=== PATIENT | male | born 1965 | race Caucasian/White ===

== ENCOUNTER → 2018-10-20 | Outpatient (CLI) | payer OTHER ==
[~2018-10-20] MED LIST: ASPIR 8181 MG PO; ATORVASTATIN CA10 MG PO; BUPROPION XL150 MG PO; ESCITALOPRAM OX10 MG PO; INDOMETHACIN50 MG PO; IOPAMIDOL 370 MG/ML 200 ML INFUS..BTL INJ ONE; LAMISIL; MECLIZINE HCL25 MG PO; OMEGA 3 1,0001 EACH PO; OMEPRAZOLE20 MG PO; PREDNISONE20 MG PO; RANEXA500 MG; SODIUM CHLORIDE 0.9% 100 ML 100 ML ONE; TESTOSTERO100 MG/1 M SC
--- NOTE | 2018-10-20 14:41 | Diagnostic Imaging Report ---
EXAMINATION: CT scan angiography of the chest with contrast. TECHNIQUE: Spiral CT angiographic images of the chest were performed from the lung apices to the level of the adrenal glands after the intravenous administration of 100 cc Isovue-370. Coronal and sagittal reformatted images were obtained. COMPARISON: None. CLINICAL HISTORY:Chest pain, aortic aneurysm DISCUSSION: Vasculature: There is no acute aortic pathology. There is no intimal flap, mediastinal hematoma, or pseudoaneurysm. Advertising Designer measurements of the thoracic aorta are as follows: Aortic annulus: 2.3 cm Sinuses of Valsalva: 3.5 cm (the sinotubular junction is preserved) Ascending thoracic aorta 3.8 cm Proximal arch 3.4 cm Mid arch 2.9 cm Distal arch 2.4 cm Proximal descending thoracic aorta: 2.6 cm Distal descending thoracic aorta 2.3 cm Thoracoabdominal aortic junction: 2.3 cm This study was not optimized for detection of pulmonary embolic disease; however, the main pulmonary artery, right and left pulmonary arteries, and their lobar branches are patent, without filling defect. The pulmonary outflow tract is of normal caliber measuring 2.4 cm . No significant calcified or noncalcified atherosclerotic plaque of the aorta or great vessel origins. LUNGS AND AIRWAYS: Patchy groundglass opacities anteriorly within the right upper lobe seen on series 5 image 20-23. Similar though less extensive opacities in the lingula seen on series 5 image 27. Metallic clip in the immediate supradiaphragmatic portion of the right lower lobe. Trachea, mainstem bronchi, and visualized lobar and segmental bronchi are patent. Small diverticulum at the right posterolateral junction of the cartilaginous and membranous portions of the trachea seen on series 5 image 19. PLEURA: No pneumothorax or pleural effusions. HEART AND MEDIASTINUM: Subcentimeter hypoattenuating nodule in the posterior right thyroid lobe. Coarsely calcified nodule inferior left thyroid lobe. Normal heart size without pericardial effusion. LYMPH NODES: Enlarged right lower paratracheal lymph node measures 1.4 cm short axis. Bilateral hilar lymphadenopathy right greater than left. ABDOMEN: Visualized portions of the liver are notable for a subcentimeter hyperattenuating lesion in segment 3, too small to further characterize but likely to represent a vascular shunt or flash filling hemangioma. 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 BONES AND SOFT TISSUES: No acute bony abnormalities. IMPRESSION: No acute aortic pathology. No thoracic aortic aneurysm per clinical query. Groundglass opacities in the right upper lobe and lingula are nonspecific though likely infectious or inflammatory in nature. 3-6 month follow-up CT scan of the chest is suggested to assess for stability or resolution. Bilateral hilar lymphadenopathy is likely reactive and may also be reassessed by above recommended follow-up CT chest. Bilateral thyroid nodules may be further evaluated by ultrasound. Signed by: Dr. Jayro Gudio M.D. on 10/20/2018 2:38 PM
== END ==
LOC: CT 13:28
PROVIDERS: ATTEND Internal Medicine Interventional Cardiology
DX: R07.9 Chest pain, unspecified (principal); E04.2 Nontoxic multinodular goiter
CPT/HCPCS: 71275; Q9967

== ENCOUNTER 2020-05-30 15:30 | Observation (INO) | payer OTHER ==
[~2020-05-30] VITALS: Ht 180.3 cm; Wt 97.1 kg
[~2020-05-30 15:30] MED LIST changes: -IOPAMIDOL 370 MG/ML 200 ML INFUS..BTL INJ ONE; -SODIUM CHLORIDE 0.9% 100 ML 100 ML ONE
[2020-05-30] MEDS ORDERED: ONDANSETRON HCL INJ 2MG/ML 2ML 2 MG/ML VIAL IV STA (16:00)
[2020-05-30] MEDS ORDERED: MORPHINE SULFATE 2 MG/ML SYR 1ML IV STA (16:00)
--- NOTE | 2020-05-30 16:00 | NUR ---
Dr. Anguiano made aware that patient is in distress, verbal order given for 4mg of Morphine IV and 4mg of Zofran IV Addendum: 05/30/20 at [address] Anguiano made aware that patient is in a lot of pain , verbal order given for 4mg of Morphine IV and 4mg of Zofran IV
[2020-05-30] MEDS: SODIUM CHLORIDE 0.9% 1000ML 1,000 ML IV SCH ×5 (16:08→21:40)
[2020-05-30] MEDS ORDERED: MORPHINE SULFATE INJ 4 MG/ML INJ 1ML ONE (16:10)
[2020-05-30] MEDS ORDERED: ASPIRIN 81 MG CHEW TAB PO ONE ×2 (16:15→17:30)
[2020-05-30 16:18] LABS: BASOPHILS % 0.3 % (0.0-1.0); EOSINOPHILS # (AUTO) 0.1 (0.0-0.4); EOSINOPHILS % 1.7 % (0.0-6.0); HEMATOCRIT 49.8 % (38.2-49.6); HEMOGLOBIN 16.7 g/dL (14.0-18.0); LYMPHOCYTES # (AUTO) 2.9 (1.0-3.2); MEAN CORPUSCULAR HEMOGLOBIN 29.1 pg (28-32); MEAN CORPUSCULAR HGB CONC 33.5 g/dL (31-35); MEAN CORPUSCULAR VOLUME 86.8 fL (81-99); MONOCYTES # (AUTO) 0.7 (0.2-0.8); MONOCYTES % 9.8 % (4.4-11.3); NEUTROPHILS # (AUTO) 3.4 (2.1-6.9); NEUTROPHILS % 47.8 % (38.7-80.0); PLATELET COUNT 200 x10e3/uL (140-360); RED BLOOD COUNT 5.74 x10e6/uL (4.3-5.7); RED CELL DISTRIBUTION WIDTH 13.1 % (11.7-14.4)
[2020-05-30 16:24] LABS: INR 0.9; PROTHROMBIN TIME 12.6 seconds (11.9-14.5)
[2020-05-30 16:25] LABS: PARTIAL THROMBOPLASTIN TIME 26.3 seconds (23.8-35.5)
[2020-05-30 16:31] LABS: ALANINE AMINOTRANSFERASE 35 IU/L (0-55); ALBUMIN 4.4 g/dL (3.5-5.0); ALBUMIN/GLOBULIN RATIO 1.5 (0.8-2.0); ALKALINE PHOSPHATASE 49 IU/L (40-150); ANION GAP 15.8 mmol/L (8-16); BLOOD UREA NITROGEN 11 mg/dL (7-26); BUN/CREATININE RATIO 11 (6-25); CALCIUM 9.3 mg/dL (8.4-10.2); CARBON DIOXIDE 25 mmol/L (22-29); CHLORIDE 103 mmol/L (98-107); CREATINE KINASE 110 IU/L (30-200); CREATININE, SERUM 1.01 mg/dL (0.72-1.25); EST GLOMERULAR FILTRATION RATE > 60 ML/MIN (60-); GLUCOSE 89 mg/dL (74-118); POTASSIUM 3.8 mmol/L (3.5-5.1); SODIUM 140 mmol/L (136-145)
[2020-05-30] MEDS ORDERED: FENTANYL CITRATE/PF 100MCG/2 ML INJ IV ONE (17:00)
--- NOTE | 2020-05-30 17:23 | Emergency Department Note ---
History of Present Illnes History of Present Illness Chief Complaint: Chest Pain History of Present Illness This is a 55 year old male arrives to the ED with chest pain radiating into the back, states only Dilaudid helps his pain. Chief Complaint Comment PATIENT IN FROM HOME WITH COMPLAINTS OF CHEST PAIN RADIATING TO BACK OFF AND ON SINCE YESTERDAY; RATES PAIN 05/18, PATIENT STATES THAT HE TOOK ONE ALEVE AT HOME PRIOR TO ARRIVAL. PATIENT ALERT AND ORIENTED, RESP EVEN AND NONLABORED. PATIENT STATES THAT HE HAD THE SAME THING HAPPEN IN 2013 Historian: Patient Arrival Mode: Car Onset (how long ago): day(s) Severity: mild Onset quality: sudden Duration (how long): day(s) Timing of current episode: constant Progression: worsening Chronicity: new Context: Reports recent illness Relieving factors: none Exacerbating factors: none Past Medical/Family History Physician Review I have reviewed the patient's past medical and family history. Any updates have been documented here. Past Medical History Recent Fever: No Clinical Suspicion of Infectio: No New/Unexplained Change in Ment: No Past Medical History: None Other Surgery: BUNION SURGERY PARTIAL SPLENECTOMY LEFT SHOULDER SURGERY Social History Smoking Cessation: Never Smoker Other Last Tetanus: UNKNOWN Review of Systems Review of Systems Constitutional: Reports no symptoms EENTM: Reports no symptoms Cardiovascular: Reports as per HPI, Reports chest pain Respiratory: Reports no symptoms Gastrointestinal: Reports no symptoms Genitourinary: Reports no symptoms Musculoskeletal: Reports no symptoms Integumentary: Reports no symptoms Neurological: Reports no symptoms Psychological: Reports no symptoms Endocrine: Reports no symptoms Hematological/Lymphatic: Reports no symptoms Physical Exam Related Data Allergies: Coded Allergies: No Known Allergies (Unverified , 07/09/17) Triage Vital Signs Vital Signs Date Time Temp Pulse Resp B/P (MAP) Pulse Ox O2 Delivery O2 Flow Rate FiO2 05/30/20 15:34 98.8 72 26 173/111 100 Room Air Vital signs reviewed: Yes Physical Exam CONSTITUTIONAL Constitutional: Present well-developed, Present well-nourished HENT HENT: Present normocephalic, Present atraumatic, Present oropharynx clear/moist, Present nose normal HENT L/R: Present left ext ear normal, Present right ext ear normal EYES Eyes: Reports PERRL, Reports conjunctivae normal NECK Neck: Present ROM normal PULMONARY Pulmonary: Present effort normal, Present breath sounds normal CARDIOVASCULAR Cardiovascular: Present regular rhythm, Present heart sounds normal, Present capillary refill normal, Present normal rate GASTROINTESTINAL Abdominal: Present soft, Present nontender, Present bowel sounds normal GENITOURINARY Genitourinary: Present exam deferred SKIN Skin: Present warm, Present dry MUSCULOSKELETAL Musculoskeletal: Present ROM normal NEUROLOGICAL Neurological: Present alert, Present oriented x 3, Present no gross motor or sensory deficits PSYCHOLOGICAL Psychological: Present mood/affect normal, Present judgement normal Results Laboratory Result Diagram: 05/30/20 1531 05/30/20 1531 Laboratory Laboratory Tests Test 05/30/20 15:31 White Blood Count 7.15 x10e3/uL (4.8-10.8) Red Blood Count 5.74 x10e6/uL (4.3-5.7) Hemoglobin 16.7 g/dL (14.0-18.0) Hematocrit 49.8 % (38.2-49.6) Mean Corpuscular Volume 86.8 fL (81-99) Mean Corpuscular Hemoglobin 29.1 pg (28-32) Mean Corpuscular Hemoglobin Concent 33.5 g/dL (31-35) Red Cell Distribution Width 13.1 % (11.7-14.4) Platelet Count 200 x10e3/uL (140-360) Neutrophils (%) (Auto) 47.8 % (38.7-80.0) Lymphocytes (%) (Auto) 40.0 % (18.0-39.1) Monocytes (%) (Auto) 9.8 % (4.4-11.3) Eosinophils (%) (Auto) 1.7 % (0.0-6.0) Basophils (%) (Auto) 0.3 % (0.0-1.0) Neutrophils # (Auto) 3.4 (2.1-6.9) Lymphocytes # (Auto) 2.9 (1.0-3.2) Monocytes # (Auto) 0.7 (0.2-0.8) Eosinophils # (Auto) 0.1 (0.0-0.4) Basophils # (Auto) 0.0 (0.0-0.1) Absolute Immature Granulocyte (auto 0.03 x10e3/uL (0-0.1) Prothrombin Time 12.6 seconds (11.9-14.5) Prothromb Time International Ratio 0.90 Activated Partial Thromboplast Time 26.3 seconds (23.8-35.5) Sodium Level 140 mmol/L (136-145) Potassium Level 3.8 mmol/L (3.5-5.1) Chloride Level 103 mmol/L (98-107) Carbon Dioxide Level 25 mmol/L (22-29) Anion Gap 15.8 mmol/L (8-16) Blood Urea Nitrogen 11 mg/dL (7-26) Creatinine 1.01 mg/dL (0.72-1.25) Estimat Glomerular Filtration Rate > 60 ML/MIN (60-) BUN/Creatinine Ratio 11 (6-25) Glucose Level 89 mg/dL (74-118) Calcium Level 9.3 mg/dL (8.4-10.2) Total Bilirubin 0.3 mg/dL (0.2-1.2) Aspartate Amino Transf (AST/SGOT) 23 IU/L (5-34) Alanine Aminotransferase (ALT/SGPT) 35 IU/L (0-55) Alkaline Phosphatase 49 IU/L (40-150) Creatine Kinase 110 IU/L (30-200) Creatine Kinase MB 1.40 ng/mL (0-5.0) Troponin I 0.012 ng/mL (0-0.300) B-Type Natriuretic Peptide 18.5 pg/mL (0-100) Total Protein 7.4 g/dL (6.5-8.1) Albumin 4.4 g/dL (3.5-5.0) Globulin 3.0 g/dL (2.3-3.5) Albumin/Globulin Ratio 1.5 (0.8-2.0) Lab results reviewed: Yes Assessment & Plan Assessment & Plan Final Impression: (1) Chest pain Depart Disposition: ADMITTED Last Vital Signs Date Time Temp Pulse Resp B/P (MAP) Pulse Ox O2 Delivery O2 Flow Rate FiO2 05/30/20 15:34 98.8 72 26 173/111 100 Room Air Home Meds Reported Medications Testosterone Cypionate (TESTOSTERONE CYPIONATE) 100 Mg/1 Ml Vial, 190 MG SC QWK 07/09/17 Medications in the ED Morphine Sulfate 4 mg NOW STAT IV Last administered on 05/30/20at 16:08; Admin Dose 4 MG; Start 05/30/20 at 16:00; Stop 05/30/20 at 16:04; Status DC Ondansetron HCl 4 mg NOW STAT IV Last administered on 05/30/20at 16:08; Admin Dose 4 MG; Start 05/30/20 at 16:00; Stop 05/30/20 at 16:04; Status DC Sodium Chloride 1,000 ml @ 1,000 mls/hr Q1H IV Last administered on 05/30/20at 16:08; Admin Dose 1,000 MLS/HR; Start 05/30/20 at 16:00; Stop 05/30/20 at 20:30 Morphine Sulfate 4 mg STK-MED ONCE .ROUTE ; Start 05/30/20 at 16:10; Stop 05/30/20 at 16:04; Status DC Aspirin 81 mg PRN ONCE PO ; Start 05/30/20 at 16:15; Stop 05/30/20 at 16:16; Status DC Fentanyl Citrate 50 mcg ONCE ONCE IV Last administered on 05/30/20at 17:18; Admin Dose 50 MCG; Start 05/30/20 at 17:00; Stop 05/30/20 at 17:01; Status DC LAMONTE RODRIGUEZ, May 30, 2020 17:23
--- NOTE | 2020-05-30 17:26 | Diagnostic Imaging Report ---
EXAMINATION: CHEST SINGLE (PORTABLE) INDICATION: Chest pain. COMPARISON: CT of the chest on 10/20/2018. FINDINGS: TUBES and LINES: None. LUNGS: Normal lung volumes. There are multifocal patchy airspace opacities throughout both lungs. Additionally, there is bilateral hilar prominence which likely reflects known hilar adenopathy. PLEURA: No pleural effusion or pneumothorax. HEART AND MEDIASTINUM: The cardiomediastinal silhouette is unremarkable. BONES AND SOFT TISSUES: No acute osseous lesion. Soft tissues are unremarkable. UPPER ABDOMEN: No free air under the diaphragm. IMPRESSION: Multifocal patchy airspace opacities throughout both lungs with bilateral hilar prominence which may represent an infectious or inflammatory process with reactive adenopathy. However, recommend complete assessment of the lungs with chest CT as previously recommended on 10/20/2018. Signed by: Shazia Toro MD on 05/30/2020 5:23 PM
[2020-05-30] MEDS ORDERED: IOPAMIDOL 370 MG/ML 200 ML INFUS..BTL INJ ONE (18:05)
[2020-05-30] MEDS ORDERED: SODIUM CHLORIDE 0.9% 50ML 0 ML ONE (18:05)
[2020-05-30] MEDS ORDERED: SODIUM CHLORIDE 0.9% 100 ML ONE (18:09)
[2020-05-30] MEDS ORDERED: HYDROMORPHONE 1MG/1ML INJ IV STA (18:38)
--- NOTE | 2020-05-30 18:43 | Diagnostic Imaging Report ---
EXAM: CT Chest WITH contrast 05/30/2020 5:30 PM INDICATION: Rule out dissection. COMPARISON: CTA chest on 10/20/2018 TECHNIQUE: Chest was scanned utilizing a multidetector helical scanner from the lung apex through the level of the adrenal glands with administration of IV contrast. Coronal and sagittal reformations were obtained. Routine protocol was performed. IV CONTRAST: 100 mL of Omnipaque 300 COMPLICATIONS: None RADIATION DOSE: Total DLP: 995.31 mGy*cm Estimated effective dose: (DLP x 0.014 x size factor) mSv CTDIvol has been reviewed. It is below the limits set by the Radiation Protocol Committee (RPC). Dose modulation, iterative reconstruction, and/or weight based adjustment of the mA/kV was utilized to reduce the radiation dose to as low as reasonably achievable. FINDINGS: VASCULAR: On the noncontrast images, there is no evidence of intramural hematoma of the imaged aorta. On the postcontrast images there is no evidence of aortic dissection. There are no filling defects within the pulmonary arteries to the segmental level. The pulmonary trunk is mildly dilated measuring 3.1 cm. The ascending aorta is ectatic measuring 4.1 cm. Descending aorta has normal caliber measuring 2.5 cm. LINES/ TUBES: None. LUNGS, PLEURA AND AIRWAYS: No focal consolidation, pleural effusion or pneumothorax. Airways are normal. HEART AND MEDIASTINUM: 4 mm nodule in the right thyroid gland of which no further follow-up is indicated. No mediastinal, hilar or axillary lymphadenopathy. The heart is normal in size. There is no pericardial effusion. UPPER ABDOMEN: 1.3 cm splenic cyst. The imaged upper abdomen is otherwise normal BONES: There are degenerative changes in the thoracic spine. SOFT TISSUES: The soft tissues are normal. IMPRESSION: 1. No evidence of aortic dissection. 2. No evidence of pulmonary embolism to the segmental level. 3. No acute intrathoracic abnormality identified. 4. Ectatic ascending aorta. Mildly dilated pulmonary trunk, suggestive of pulmonary arterial hypertension. Signed by: Shazia Toro MD on 05/30/2020 6:39 PM
[2020-05-30] MEDS ORDERED: ONDANSETRON HCL INJ 2MG/ML 2ML 2 MG/ML VIAL IV PRN (19:45)
[2020-05-30] MEDS ORDERED: MORPHINE SULFATE INJ 4 MG/ML INJ 1ML IV PRN (19:45)
[2020-05-30] MEDS ORDERED: HYDRALAZINE HCL 20 MG/ML VIAL IV PRN (19:45)
[2020-05-30 20:28] VITALS: BP 161/99
[2020-05-30] MEDS: HYDROMORPHONE 1MG/1ML INJ IV PRN (21:48)
[2020-05-30 23:30] VITALS: BP 161/99
[2020-05-31] VITALS (8 sets, daily range): BP systolic 121–143; BP diastolic 84–92
[2020-05-31 01:51] LABS: CREATINE KINASE MB 1.2 ng/mL (0-5.0)
[2020-05-31 05:14] LABS: BASOPHILS % 0.5 % (0.0-1.0); EOSINOPHILS # (AUTO) 0.1 (0.0-0.4); EOSINOPHILS % 1.8 % (0.0-6.0); HEMOGLOBIN 15.2 g/dL (14.0-18.0); LYMPHOCYTES # (AUTO) 2.6 (1.0-3.2); LYMPHOCYTES % 31.9 % (18.0-39.1); MEAN CORPUSCULAR HGB CONC 33.8 g/dL (31-35); MEAN CORPUSCULAR VOLUME 85.7 fL (81-99); MONOCYTES # (AUTO) 0.9 (0.2-0.8); MONOCYTES % 11.4 % (4.4-11.3); NEUTROPHILS # (AUTO) 4.3 (2.1-6.9); NEUTROPHILS % 53.9 % (38.7-80.0); PLATELET COUNT 179 x10e3/uL (140-360); RED BLOOD COUNT 5.25 x10e6/uL (4.3-5.7)
[2020-05-31 05:39] LABS: ALANINE AMINOTRANSFERASE 33 IU/L (0-55); ALBUMIN 3.9 g/dL (3.5-5.0); ALBUMIN/GLOBULIN RATIO 1.9 (0.8-2.0); ALKALINE PHOSPHATASE 40 IU/L (40-150); ANION GAP 11.2 mmol/L (8-16); BLOOD UREA NITROGEN 11 mg/dL (7-26); BUN/CREATININE RATIO 13 (6-25); CALCIUM 8.1 mg/dL (8.4-10.2); CARBON DIOXIDE 26 mmol/L (22-29); CHLORIDE 107 mmol/L (98-107); CREATININE, SERUM 0.84 mg/dL (0.72-1.25); EST GLOMERULAR FILTRATION RATE > 60 ML/MIN (60-); GLUCOSE 77 mg/dL (74-118); POTASSIUM 4.2 mmol/L (3.5-5.1); SODIUM 140 mmol/L (136-145)
[2020-05-31 05:54] LABS: CHOL/HDL RATIO 5.7 (3.9-4.7)
[2020-05-31 05:59] LABS: THYROID STIMULATING HORMONE 1.792 uIU/mL (0.350-4.940)
--- NOTE | 2020-05-31 07:00 | NUR ---
RECEIVED BEDSIDE REPORT FROM OFF GOING NIGHT NURSE. RESPIRATION EVEN AND NONLABORED. PATIENT IN STABLE CONDITION, NO S/S OF DISTRESS NOTED. TELEMETRY APPLIED. IV SITE ASYMPTOMATIC AND PATENT, TRANSPARENT DRESSING C/D/I. BED IN LOWEST POSITION AND LOCKED, SIDE RAILS X 2, NONSKID SOCKS APPLIED. CALL LIGHT WITHIN REACH.
[2020-05-31] MEDS: FAMOTIDINE 20 MG TAB PO SCH ×2 (07:30→16:07)
[2020-05-31] MEDS: HYDROMORPHONE 1MG/1ML INJ IV PRN ×2 (09:10→20:30)
[2020-05-31] MEDS: ASPIRIN 81 MG CHEW TAB PO SCH (09:14)
[2020-05-31] MEDS: ACETAMINOPHEN 325 MG TAB PO PRN ×2 (10:00→16:07)
[2020-05-31] MEDS ORDERED: ASPIRIN CHEW81 MG PO (11:00)
[2020-05-31] MEDS ORDERED: LIPITOR10 MG PO (11:00)
[2020-05-31] MEDS ORDERED: FAMOTIDINE20 MG PO (11:00)
[2020-05-31 11:01] LABS: CREATINE KINASE MB 1.2 ng/mL (0-5.0)
--- NOTE | 2020-05-31 14:34 | Consultation ---
DATE OF CONSULTATION: 05/31/2020 Cardiology Consult Note REASON FOR CONSULT: Chest pain and abdominal pain. CHIEF COMPLAINT: Chest pain and abdominal pain. HISTORY OF PRESENT ILLNESS: A 55-year-old man, history of chronic stable angina, previously has been treated with ranolazine, cath in 2013 showed no obstructive epicardial coronary disease, who presents with episode of substernal chest pain, epigastric abdominal pain and right upper quadrant abdominal pain which started last night, about an hour after dinner. Initially he thought it was similar to his chest pains he had several years ago when he was catheterized. However, over several hours, the pain progressed more into his right upper quadrant of his abdomen more so than his chest. Denies any previous history of gallstones. Denies fevers, chills, nausea, or vomiting. Denies alcohol use. REVIEW OF SYSTEMS: Negative aside from as noted in the HPI. SOCIAL HISTORY: Does not smoke, drink, or abuse drugs. FAMILY HISTORY: Noncontributory. OUTPATIENT MEDICATIONS: Reviewed. ALLERGIES: NO KNOWN DRUG ALLERGIES. OBJECTIVE: VITAL SIGNS: Temperature afebrile, pulse 66, respiratory rate 20, blood pressure 132/91, and saturating 100% on room air. GENERAL: Middle-aged man, well developed, well nourished, no acute distress. CARDIOVASCULAR: Regular rate and rhythm. No murmurs, rubs, or gallops. LUNGS: Clear to auscultation anteriorly. ABDOMEN: Soft, nontender, nondistended. NEURO AND PSYCH: Alert and oriented to person, place, and time. Normal affect. INPATIENT MEDICATIONS: Reviewed. LABORATORY DATA: Reviewed. TELEMETRY DATA: Reviewed, shows normal sinus rhythm. IMAGING DATA: Reviewed. Chest CT shows no evidence of aortic dissection. No evidence of pulmonary emboli, ectatic aorta, dilated pulmonary arteries with possible pulmonary hypertension. ASSESSMENT: 1. Chest pain. 2. Abdominal pain. PLAN: Chest pain is atypical. Had recent workup in the office with normal stress test and echo within the last year. Ruled out for acute VA with serial troponins. I do not suspect ACS at this time. The patient is okay to go home from cardiovascular standpoint and follow up as an outpatient with his project systems engineer, Dr. Zhang. Workup for possible gallstones is ongoing. Abdominal ultrasound has been ordered. If he needs any procedures for this there will be low risk for perioperative cardiovascular events. Thank you for this consult. We will continue to follow. MD JOVAN Montgomery/KANDI /[id number]
--- NOTE | 2020-05-31 15:24 | Diagnostic Imaging Report ---
EXAM: US ABDOMEN COMPLETE DATE: 05/31/2020 2:03 PM INDICATION: Abdominal pain COMPARISON: Chest CT 05/30/2020 TECHNIQUE: Transverse and longitudinal watkins scale and color doppler sonographic images of the upper abdomen were obtained. FINDINGS: LIVER 18.6 cm in the right midclavicular line. Increased echogenicity of the liver with normal contour, no masses. SPLEEN 11.2 cm in maximum diameter. Normal echogenicity, no masses. GALLBLADDER Multiple shadowing gallstones within the gallbladder lumen. No gallbladder wall thickening, gallbladder distention, or pericholecystic fluid. Negative sonographic Farrell's sign. Gallbladder wall measures 6 mm. BILE DUCTS No intra nor extra-hepatic biliary dilation. Common bile duct measures 3mm PANCREAS: Visualized portions are normal. RIGHT KIDNEY: 11.5 cm Echogenicity: Normal Collecting System: No hydronephrosis Stones: None Cyst/Mass: Lower pole 1.7 cm anechoic simple cyst. LEFT KIDNEY: 11.6 cm Echogenicity: Normal Collecting System: No hydronephrosis Stones: None Cyst/Mass: None VESSELS: Aorta: Visualized portions are within normal size limits Inferior Vena Cava: Visualized portions are normal Main Portal Vein: 0.9 cm, normal size with hepatopetal flow. FREE FLUID: None IMPRESSION: Cholelithiasis and mild gallbladder wall thickening without specific evidence of acute cholecystitis. Hepatomegaly and diffuse hepatic steatosis. Signed by: Mckenna Martinez MD on 05/31/2020 3:20 PM
--- NOTE | 2020-05-31 18:42 | NUR ---
PATIENT OFF THE UNIT @ 1730 VIA WHEELCHAIR. PATIENT WENT TO NUCLEAR MEDICINE. PATIENT LEFT IN STABLE CONDITION.
--- NOTE | 2020-05-31 19:21 | NUR ---
PASSED ALONG TO PLATE SENSITIZER NURSE THAT THE PATIENT IS AT NUCLEAR MEDICINE.
--- NOTE | 2020-05-31 20:13 | Diagnostic Imaging Report ---
Hepatobiliary Scan with Gallbladder Ejection Fraction Reason for exam: Abdominal pain Technique: Following intravenous administration of 6.6 millicuries of Tc-99m mebrofenin, dynamic images of the abdomen in the anterior projection were obtained through 60 minutes. Sincalide (CCK analog) 1.95 micrograms was administered intravenously over 30 minutes with additional imaging for determination of gallbladder ejection fraction. Discussion: Perfusion of the liver is normal. Extraction of tracer by the liver parenchyma is normal. Tracer appears promptly within the biliary tract. The gallbladder begins to fill by 6 minutes post injection of tracer and fills adequately. Tracer is seen in the small bowel by 6 minutes. The gallbladder ejection fraction with sincalide is 26% (normal greater than 40%). Impression: 1. Filling of the gallbladder excludes acute cystic duct obstruction/acute cholecystitis. 2. The decreased gallbladder ejection fraction of 26% supports the clinical diagnosis of chronic cholecystitis/gallbladder dyskinesia. Signed by: Dr. Ludy Lee M.D. on 05/31/2020 8:10 PM
[2020-05-31] MEDS ORDERED: MORPHINE SULFATE INJ 4 MG/ML INJ 1ML IV PRN (20:15)
[2020-05-31] MEDS ORDERED: MELATONIN 5 MG TABLET PO SCH (21:00)
[2020-05-31] MEDS: SODIUM CHLORIDE 0.9% 1000ML 1,000 ML IV SCH (21:30)
[2020-06-01] VITALS: BP 114/72
[2020-06-01 04:00] VITALS: BP 132/87
[2020-06-01] MEDS: SODIUM CHLORIDE 0.9% 1000ML 1,000 ML IV SCH (06:02)
[2020-06-01 06:18] LABS: BASOPHILS % 0.4 % (0.0-1.0); EOSINOPHILS # (AUTO) 0.2 (0.0-0.4); EOSINOPHILS % 2.8 % (0.0-6.0); HEMATOCRIT 45.7 % (38.2-49.6); HEMOGLOBIN 15.3 g/dL (14.0-18.0); LYMPHOCYTES # (AUTO) 2.6 (1.0-3.2); LYMPHOCYTES % 37.2 % (18.0-39.1); MEAN CORPUSCULAR HEMOGLOBIN 28.9 pg (28-32); MEAN CORPUSCULAR HGB CONC 33.5 g/dL (31-35); MEAN CORPUSCULAR VOLUME 86.4 fL (81-99); MONOCYTES # (AUTO) 0.7 (0.2-0.8); MONOCYTES % 9.5 % (4.4-11.3); NEUTROPHILS # (AUTO) 3.5 (2.1-6.9); NEUTROPHILS % 49.7 % (38.7-80.0); PLATELET COUNT 174 x10e3/uL (140-360); RED BLOOD COUNT 5.29 x10e6/uL (4.3-5.7); RED CELL DISTRIBUTION WIDTH 13.1 % (11.7-14.4)
[2020-06-01 06:50] LABS: ALANINE AMINOTRANSFERASE 28 IU/L (0-55); ALBUMIN 3.9 g/dL (3.5-5.0); ALBUMIN/GLOBULIN RATIO 1.7 (0.8-2.0); ALKALINE PHOSPHATASE 44 IU/L (40-150); ANION GAP 11.2 mmol/L (8-16); BLOOD UREA NITROGEN 13 mg/dL (7-26); BUN/CREATININE RATIO 15 (6-25); CALCIUM 7.9 mg/dL (8.4-10.2); CARBON DIOXIDE 26 mmol/L (22-29); CHLORIDE 107 mmol/L (98-107); CREATININE, SERUM 0.85 mg/dL (0.72-1.25); EST GLOMERULAR FILTRATION RATE > 60 ML/MIN (60-); GLUCOSE 67 mg/dL (74-118); POTASSIUM 4.2 mmol/L (3.5-5.1); SODIUM 140 mmol/L (136-145)
[2020-06-01] MEDS: FAMOTIDINE 20 MG TAB PO SCH (07:30)
[2020-06-01 08:12] VITALS: BP 137/92
[2020-06-01] MEDS ORDERED: PANTOPRAZOLE SO40 MG PO (08:12)
[2020-06-01 08:22] VITALS: BP 137/92
[2020-06-01] MEDS: ASPIRIN 81 MG CHEW TAB PO SCH (08:45)
--- NOTE | 2020-06-01 10:57 | NUR ---
PATIENT DISCHARGED HOME. PATIENT OFF THE UNIT @ 1044 ACCOMPANIED BY RN TO THE LOBBY. PATIENT IN STABLE CONDITION, NO S/S OF DISTRESS NOTED. NO PAIN VOICED. IV ACCESS REMOVED WITH TIP INTACT. ALL PERSONAL ITEMS TAKEN BY THE PATIENT. DISCHARGE TEACHING AND INSTRUCTION GIVEN TO THE PATIENT. PATIENT VERBALIZED UNDERSTANDING. DISCHARGE PAPERWORK AND PRESCRIPTIONS GIVEN TO THE PATIENT.
--- NOTE | 2020-06-02 01:23 | Discharge Summary ---
ADMISSION DIAGNOSES: 1. Chest pain. 2. Obstructive sleep apnea. 3. Abdominal pain. 4. Hyperlipidemia. DISCHARGE DIAGNOSES: 1. Chest pain. 2. Obstructive sleep apnea. 3. Abdominal pain. 4. Hyperlipidemia. 5. Pancreatitis. 6. Rule out acute coronary syndrome. 7. Gallbladder dyskinesia. HISTORY: RICKY with CPAP use, chronic back pain. SURGICAL HISTORY: Left foot surgery, partial splenectomy, left shoulder surgery. FAMILY HISTORY: The patient's mother had cancer. The patient's father had a stroke. The patient's brother, grandfather and aunt had heart attack. SOCIAL HISTORY: The patient admits to smoking less than one pack of cigarettes a day and occasional alcohol use. HOSPITAL COURSE: A 55-year-old male, admits with complaints of right upper middle back pain described as burning that began on Friday. Yesterday, the pain radiated to his substernal area and right upper quadrant. The chest/abdominal pain was sharp and described as a soreness. He denies nausea, vomiting, diarrhea, diaphoresis, dizziness, and shortness of breath. On admission, troponins were negative x3. BNP was within normal limits. The patient's lipid panel was elevated, so he was started on Lipitor as well as aspirin. Cardiology was consulted, who did not want to do a cardiac workup and said they ordered an ultrasound of the abdomen. Ultrasound of the abdomen showed gallstones. HIDA scan was ordered. The patient's lipase came back elevated. He was kept n.p.o. and the number trended down. Chest x-ray showed multifocal patchy airspace opacity throughout both lungs. CTA of the chest showed no evidence of aortic dissection. No evidence of PE. No acute intrathoracic abnormality identified. As the lipase returned to normal, the patient was tolerating diet and the pain was well controlled. He is very adamant about eating and going home today. Surgery was consulted, but per the patient request to discharge today, the surgery consult was canceled. The patient was advised that he needs to follow up outpatient for a cholecystectomy. The patient was discharged home with new prescriptions for aspirin, Lipitor, and Protonix. The patient understands discharge instructions and agrees to plan. Vital signs stable and the patient afebrile. Dictated by Ebony Price, NICANOR MD DIPESH Arguello/KANDI /[id number]
--- OUTSIDE RECORDS SUMMARY | 2020-06-04 15:19 | XMS REPORT | Continuity of Care Document ---
Author Author [facility] t Organization [facility] Address [address] [place] [address] Phone Unavailable Care Team Providers Care Videotape Sales Representative Name Role Phone ANA LAURACHANCE LAURA Attphys Unavailable LIZETTE GRIGGS Attphys Unavailable Robles OLMOS Attphys Unavailable Chemo Lacey Attphys Erin Montalvo Attphys LAURA BRAGG Admphys Unavailable Problems Condition Name Condition Details Condition Category Status Onset Date Resolution Date Last Treatment Date Treating Clinician Comments Source PERSISTENT DIZZINESS PERS ISTENT DIZZINESS Active 05/24/2015 [facility] Diagnosis Active 2015-05-24 00:00:00 2015-05-27 16:52:00 [facility] LF 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 Diagnosis Active 2015-06-16 13:11:00 [facility] Allergies, Adverse Reactions, Alerts This patient has no known allergies or adverse reactions. Social History Social Habit Start Date Stop Date Quantity Comments Source Social History 2015-05-28 04:59:00 2015-05-28 04:59:00 [facility] Medications This patient has no known medications. Procedures This patient has no known procedures. Encounters Start Date/Time End Date/Time [facility] En[facility] ID Source 2019-07-19 08:55:00 2019-07-19 08:55:00 Outpatient [id number] 2019-02-26 08:16:00 2019-02-26 08:16:00 Outpatient [id number] 2015-06-16 09:49:00 2015-07-15 23:59:00 Outpatient Srinivasan Lacey [id number] 2015-05-27 16:43:00 2015-05-27 23:59:00 Outpatient Selvin Eloisa Khan [facility] [id number] Results Test Description Test Time Test Comments Results Result Comments Source HEPTOBILIARY W PHARM 2020-05-31 20:08:00 [place] [address] Patient Name: BRIAN BOWSER MR #: [id number] : 1965 Age/Sex: 55/M Req #: [id number] Adm Physician: LAURA BRAGG MD Ordered by: Nabeel Adair NUT GRINDER Report #: [id number] Location: MED/SURG2 Room/Bed: [facility][note 3] Procedure: [id number] NM/HEPTOBILIARY W PHARM Exam Date: 05/31/20 Exam Time: 1745 REPORT STATUS: Signed Hepatobiliary Scan with Gallbladder Ejection Fraction Reason for exam: Abdominal pain Technique: Following intravenous administration of 6.6 millicuries of Tc-99m mebrofenin, dynamic images of the abdomen in the anterior projection were obtained through 60 minutes. Sincalide (CCK analog) 1.95 micrograms was administered intravenously over 30 minutes with additional imaging for determination of gallbladder ejection fraction. Discussion: Perfusion of the liver is normal. Extraction of tracer by the liver parenchyma is normal. Tracer appears promptly within the biliary tract. The gallbladder begins to fill by 6 minutes post injection of tracer and fills adequately. Tracer is seen in the small bowel by 6 minutes. The gallbladder ejection fraction with sincalide is 26% (normal greater than 40%). Impression: 1. Filling of the gallbladder excludes acute cystic duct obstruction/acute cholecystitis. 2. The decreased gallbladder ejection fraction of 26% supports the clinical diagnosis of chronic cholecystitis/gallbladder dyskinesia. Signed by: Dr. Mary Lee M.D. on 05/31/2020 8:10 PM Dictated By: MARY LEE MD 09 Transcribed By: FERCHO on 05/31/202009 COPY TO: NABEEL ADAIR NUT GRINDER US ABDOMEN COMPLETE 2020-05-31 15:17:00 [place] [address] Patient Name: BRIAN BOWSER MR #: [id number] : 1965 Age/Sex: 55/M Req #: [id number] Adm Physician: LAURA BRAGG MD Ordered by: Nabeel Adair NUT GRINDER Report #: [id number] Location: MED/SURG2 Room/Bed: [facility][note 3] Procedure: [id number] US/US ABDOMEN COMPLETE Exam Date: 05/31/20 Exam Time: 1403 REPORT STATUS: Signed EXAM: US ABDOMEN COMPLETE DATE: 05/31/2020 2:03 PM INDICATION: Abdominal pain COMPARISON: Chest CT 05/30/2020 TECHNIQUE: Transverse and longitudinal watkins scale and color doppler sonographic images of the upper abdomen were obtained. FINDINGS: LIVER 18.6 cm in the right midclavicular line. Increased echogenicity of the liver with normal contour, no masses. SPLEEN 11.2 cm in maximum diameter. Normal echogenicity, no masses. GALLBLADDER Multiple shadowing gallstones within the gallbladder lumen. No gallbladder wall thickening, gallbladder distention, or pericholecystic fluid. Negative sonographic Farrell's sign. Gallbladder wall measures 6 mm. BILE DUCTS No intra nor extra-hepatic biliary dilation. Common bile duct measures 3mm PANCREAS: Visualized portions are normal. RIGHT KIDNEY: 11.5 cm Echogenicity: Normal Collecting System: No hydronephrosis Stones: None Cyst/Mass: Lower pole 1.7 cm anechoic simple cyst. LEFT KIDNEY: 11.6 cm Echogenicity: Normal Collecting System: No hydronephrosis Stones: None Cyst/Mass: None VESSELS: Aorta: Visualized portions are within normal size limits Inferior Vena Cava: Visualized portions are normal Main Portal Vein: 0.9 cm, normal size with hepatopetal flow. FREE FLUID: None IMPRESSION: Cholelithiasis and mild gallbladder wall thickening without specific evidence of acute cholecystitis. Hepatomegaly and diffuse hepatic steatosis. Signed by: Severino Quinn MD on 05/31/2020 3:20 PM Dictated By: SEVERINO QUINN MD 1520 Transcribed By: FERCHO on 05/31/20 1520 COPY TO: NABEEL ADAIR NUT GRINDER CTA CHEST 2020-05-30 18:26:00 [place] [address] Patient Name: BRIAN BOWSER MR #: [id number] : 1965 Age/Sex: 55/M Req #: [id number] Adm Physician: LAURA BRAGG MD Ordered by: LAMONTE RODRIGUEZ DO Report #: [id number] Location: [facility] Room/Bed: [place] [address] Procedure: CT/CTA CHEST Exam Date: 05/30/20 Exam Time: 1730 REPORT STATUS: Signed EXAM: CT Chest WITH contrast 05/30/2020 5:30 PM INDICATION: Rule out dissection. COMPARISON: CTA chest on 10/20/2018 TECHNIQUE: Chest was scanned utilizing a multidetector helical scanner from the lung apex through the level of the adrenal glands with administration of IV contrast. Coronal and sagittal reformations were obtained. Routine protocol was performed. IV CONTRAST: 100 mL of Omnipaque 300 COMPLICATIONS: None RADIATION DOSE: Total DLP: 995.31 mGy*cm Estimated effective dose: (DLP x 0.014 x size factor) mSv CTDIvol has been reviewed. It is below the limits set by the Radiation Protocol Committee (RPC). Dose modulation, iterative reconstruction, and/or weight based adjustment of the mA/kV was utilized to reduce the radiation dose to as low as reasonably achievable. FINDINGS: VASCULAR: On the noncontrast images, there is no evidence of intramural hematoma of the imaged aorta. On the postcontrast images there is no evidence of aortic dissection. There are no filling defects within the pulmonary arteries to the segmental level. The pulmonary trunk is mildly dilated measuring 3.1 cm. The ascending aorta is ectatic measuring 4.1 cm. Descending aorta has normal caliber measuring 2.5 cm. LINES/ TUBES: None. LUNGS, PLEURA AND AIRWAYS: No focal consolidation, pleural effusion or pneumothorax. Airways are normal. HEART AND MEDIASTINUM: 4 mm nodule in the right thyroid gland of which no further follow-up is indicated. No mediastinal, hilar or axillary lymphadenopathy. The heart is normal in size. There is no pericardial effusion. UPPER ABDOMEN: 1.3 cm splenic cyst. The imaged upper abdomen is otherwise normal BONES: There are degenerative changes in the thoracic spine. SOFT TISSUES: The soft tissues are normal. IMPRESSION: 1. No evidence of aortic dissection. 2. No evidence of pulmonary embolism to the segmental level. 3. No acute intrathoracic abnormality identified. 4. Ectatic ascending aorta. Mildly dilated pulmonary trunk, suggestive of pulmonary arterial hypertension. Signed by: Samir Yost MD on 05/30/2020 6:39 PM Dictated By: SAMIR YOST MD 38 Transcribed By: FERCHO on 05/30/201838 COPY TO: LAMONTE RODRIGUEZ DO CHEST SINGLE (PORTABLE) 2020-05-30 17:16:00 [place] [address] Patient Name: BRIAN BOWSER MR #: [id number] : 1965 Age/Sex: 55/M Req #: [id number] Adm Physician: LAURA BRAGG MD Ordered by: LAMONTE RODRIGUEZ DO Report #: [id number] Location: MED/SURG2 Room/Bed: [facility][note 3] Procedure: [id number] DX/CHEST SINGLE (PORTABLE) Exam Date: 05/30/20 Exam Time: 1630 REPORT STATUS: Signed EXAMINATION: CHEST SINGLE (PORTABLE) INDICATION: Chest pain. COMPARISON: CT of the chest on 10/20/2018. FINDINGS: TUBES and LINES: None. LUNGS: Normal lung volumes. There are multifocal patchy airspace opacities throughout both lungs. Additionally, there is bilateral hilar prominence which likely reflects known hilar adenopathy. PLEURA: No pleural effusion or pneumothorax. HEART AND MEDIASTINUM: The cardiomediastinal silhouette is unremarkable. BONES AND SOFT TISSUES: No acute osseous lesion. Soft tissues are unremarkable. UPPER ABDOMEN: No free air under the diaphragm. IMPRESSION: Multifocal patchy airspace opacities throughout both lungs with bilateral hilar prominence which may represent an infectious or inflammatory process with reactive adenopathy. However, recommend complete assessment of the lungs with chest CT as previously recommended on 10/20/2018. Signed by: Samir Yost MD on 05/30/2020 5:23 PM Dictated By: SAMIR YOST MD [id number] Transcribed By: FERCHO on 05/30/20 1723 COPY TO: LAMONTE RODRIGUEZ DO CTA CHEST 2018-10-20 14:24:00 [place] [address] Patient Name: BRIAN BOWSER MR #: [id number] : 1965 Age/Sex: 53/M Req #: [id number] Adm Physician: Ordered by: LIZETTE GRIGGS MD Report #: [id number] Location: CT Room/Bed: Procedure: [id number] CT/CTA CHEST Exam Date: 10/20/18 Exam Time: 1415 REPORT STATUS: Signed EXAMINATION: CT scan angiography of the chest with contrast. TECHNIQUE: Spiral CT angiographic images of the chest were performed from the lung apices to the level of the adrenal glands after the intravenous administration of 100 cc Isovue-370. Coronal and sagittal reformatted images were obtained. COMPARISON: None. CLINICAL HISTORY:Chest pain, aortic aneurysm DISCUSSION: Vasculature: There is no acute aortic pathology. There is no intimal flap, mediastinal hematoma, or pseudoaneurysm. [facility] measurements of the thoracic aorta are as follows: Aortic annulus: 2.3 cm Sinuses of Valsalva: 3.5 cm (the sinotubular junction is preserved) Ascending thoracic aorta 3.8 cm Proximal arch 3.4 cm Mid arch 2.9 cm Distal arch 2.4 cm Proximal descending thoracic aorta: 2.6 cm Distal descending thoracic aorta 2.3 cm Thoracoabdominal aortic junction: 2.3 cm This study was not optimized for detection of pulmonary embolic disease; however, the main pulmonary artery, right and left pulmonary arteries, and their lobar branches are patent, without filling defect. The pulmonary outflow tract is of normal caliber measuring 2.4 cm . No significant calcified or noncalcified atherosclerotic plaque of the aorta or great vessel origins. LUNGS AND AIRWAYS: Patchy groundglass opacities anteriorly within the right upper lobe seen on series 5 image 20-23. Similar though less extensive opacities in the lingula seen on series 5 image 27. Metallic clip in the immediate supradiaphragmatic portion of the right lower lobe. Trachea, mainstem bronchi, and visualized lobar and segmental bronchi are patent. Small diverticulum at the right posterolateral junction of the cartilaginous and membranous portions of the trachea seen on series 5 image 19. PLEURA: No pneumothorax or pleural effusions. HEART AND MEDIASTINUM: Subcentimeter hypoattenuating nodule in the posterior right thyroid lobe. Coarsely calcified nodule inferior left thyroid lobe. Normal heart size without pericardial effusion. LYMPH NODES: Enlarged right lower paratracheal lymph node measures 1.4 cm short axis. Bilateral hilar lymphadenopathy right greater than left. ABDOMEN: Visualized portions of t he liver are notable for a subcentimeter hyperattenuating lesion in segment 3, too small to further characterize but likely to represent a vascular shunt or flash filling hemangioma. 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 BONES AND SOFT TISSUES: No acute bony abnormalities. IMPRESSION: No acute aortic pathology. No thoracic aortic aneurysm per clinical query. Groundglass opacities in the right upper lobe and lingula are nonspecific though likely infectious or inflammatory in nature. 3-6 month follow-up CT scan of the chest is suggested to assess for stability or resolution. Bilateral hilar lymphadenopathy is likely reactive and may also be reassessed by above recommended follow-up CT chest. Bilateral thyroid nodules may be further evaluated by ultrasound. Signed by: Dr. Jessica Guido M.D. on 10/20/2018 2:38 PM Dictated By: JESSICA GUIDO MD 1438 Transcribed By: FERCHO on 10/20/18 1438 COPY TO: LIZETTE GRIGGS MD CHEST 2 VIEWS [place] [address] Patient Name: BRIAN BOWSER MR #: [id number] : 1965 Age/Sex: 52/M Req #: [id number] Adm Physician: Ordered by: MASHA OLMOS DPM Report #: [id number] Location: OR Room/Bed: Procedure: [id number] DX/CHEST 2 VIEWS Exam Date: 07/09/17 Exam Time: 1624 REPORT STATUS: Signed PROCEDURE: Frontal and lateral views of the chest. COMPARISON: Chest radiograph 07/14/2000 INDICATIONS: PRE-OPERATIVE CHEST X-RAY FOR FOOT SURGERY FINDINGS: Lines/tubes: None. Lungs: The lungs are well inflated and clear. There is no evidence of pneumonia or pulmonary edema. Pleura: There is no pleural effusion or pneumothorax. Heart and mediastinum: The heart and the mediastinum are normal. Bones: No acute bony abnormality. Upper abdomen: No free air under the diaphragm. Surgical clips overlie the right upper quadrant. IMPRESSION: No acute cardiopulmonary disease. Dictated by: Eric Andrade M.D. on 07/09/2017 at 16:54 Electronically approved by: Eric Andrade M.D. on 07/09/2017 at 16:54 Dictated By: ERIC ANDRADE MD Elect ronically Signed By: ERIC ANDRADE MD on 07/09/171653 Transcribed By: WILLIAM on 07/09/171653 COPY TO: MASHA OLMOS DPM
--- OUTSIDE RECORDS SUMMARY | 2020-06-04 15:19 | XMS REPORT | Continuity of Care Document ---
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 - SPLENOM Active 02/02/2015 [facility] [place] VERTIGO Active [facility] Medications No Data Provided for This Section Allergies, Adverse Reactions, Alerts No Known Medication Allergies Immunizations No Data Provided for This Section Results No Data Provided for This Section Pathology Reports No Data Provided for This Section Diagnostic Reports Report Value Date Source Brain/IAC's w/wo contrast MRI MRI BRAIN WITH AND WITHOUT CONTRAST \T\ MRI IAC PROTOCOL: CLINICAL HISTORY: 780.4 Dizziness and Giddiness, 386.9 Unspecified Vertiginous Syndromes and Labyrinthine Disorders TECHNIQUE AND FINDINGS: A routine multiplanar MRI of the brain was performed with and without intravenous contrast on a 1.5 ruddy magnet. Imaging sequences include sagittal T1 localizer, coronal FLAIR, axial T2 FSE, axial proton density FSE, axial diffusion weighted, axial precontrast T1, and postcontrast T1 weighed images in the axial, coronal, and sagittal planes. Additionally, high resolution precontrast and postcontrast images were obtained through the internal auditory canals. COMPARISON: 01/27/2012. MRI BRAIN WITH AND WITHOUT CONTRAST: 1. The brain volume and ventricle size a re appropriate for age. 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 2. No intracranial hemorrhage, mass, mas s-effect, or extra-axial fluid collection is appreciated. 3. The diffusion weighted images are neg ative without evidence of increased signal to suggest acute ischemia. 4. The major intracranial flow voids are patent. 5. The post contrast images demonstrate no abnormal enhancement. 6. The pituitary gland size and midline structures are normal. 7. Minimal mucoperiosteal thickening in the ethmoid sinus. The visualized portions of the remaining paranasal sinuses and mastoids are clear. MRI IAC PROTOCOL WITHOUT CONTRAST: 1. The bilateral cerebellopontine angles and internal auditory canals are normal in appearance without abnormal signal or enhancement. IMPRESSION: 1. Normal brain without acute intracrani al abnormality. 2. Normal bilateral cerebellopontine ang les and internal auditory canals. 3. Minimal chronic sinusitis. SL:17 05/27/2015 [facility] Consultation Notes No Data Provided for This Section Discharge Summaries No Data Provided for This Section History and Physicals No Data Provided for This Section Vital Signs No Data Provided for This Section Encounters Location Location Details Encounter Type Encounter Number Reason For Visit Attending Provider ADM Date DC Date Status Source [facility] Outpatient [id number] Eloisa Robledocodie 05/27/2015 05/28/2015 [facility] OP Therapy Patients [id number] Baron Lacey 06/16/2015 07/16/2015 [facility] Procedures No Data Provided for This Section Assessment and Plan No Data Provided for This Section Plan of Care No Data Provided for This Section Social History Social History Date Source No data available for this section 07/16/2015 [facility] No data available for this section 05/28/2015 [facility] Family History No Data Provided for This Section Advance Directives No Data Provided for This Section Functional Status No Data Provided for This Section
--- OUTSIDE RECORDS SUMMARY | 2020-06-04 15:19 | XMS REPORT | Continuity of Care Document ---
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 Medications No Data Provided for This Section [...] canals. 3. Minimal chronic sinusitis. SL:17 05/27/2015 [facility] Consultation Notes No Data Provided for This Section Discharge Summaries No Data Provided for This Section History and Physicals No Data Provided for This Section Vital Signs No Data Provided for This Section Encounters Location Location Details Encounter Type Encounter Number Reason For Visit Attending Provider ADM Date DC Date Status Source [facility] Outpatient [id number] Eloisa Robledocodie 05/27/2015 05/28/2015 [facility] OP Therapy Patients [id number] Baron Lacey 06/16/2015 07/16/[address] [facility] Procedures No Data Provided for This Section Assessment and Plan No Data Provided for This Section Plan of Care No Data Provided for This Section Social History Social History Date Source No data available for this section 07/16/[address] [facility] No data available for this section 05/28/2015 [facility] Family History No Data Provided for This Section Advance Directives No Data Provided for This Section Functional Status No Data Provided for This Section
--- OUTSIDE RECORDS SUMMARY | 2020-06-04 15:19 | XMS REPORT | Continuity of Care Document ---
Author Author [facility] t Organization [facility] Address [address] [place] [address] Phone Unavailable Care Team Providers Care Cutter Operator Name Role Phone ANA LAURACHANCE LAURA Attphys Unavailable LIZETTE GRIGGS Attphys Unavailable Robles OLMOS Attphys Unavailable Chemo Lacey Attphys Erin Montalvo Attphys LAURA BRAGG Admphys Unavailable Problems Condition Name Condition Details Condition Category Status Onset Date Resolution Date Last Treatment Date Treating Clinician Comments Source PERSISTENT DIZZINESS PERS ISTENT DIZZINESS Active 05/24/2015 [facility] Diagnosis Active 2015-05-24 00:00:00 [facility] 789.2 - SPLENOM 789.02 - ABDMNAL PAIN LF 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 Social History Social Habit Start Date Stop Date Quantity Comments Source Social History 2015-05-28 04:59:00 2015-05-28 04:59:00 [facility] Medications This patient has no known medications. Procedures This patient has no known procedures. Encounters Start Date/Time End Date/Time [facility]counter Type [facility] ID Source 2019-07-19 08:55:00 2019-07-19 08:55:00 Outpatient [id number] 2019-02-26 08:16:00 2019-02-26 08:16:00 Outpatient [id number] 2015-06-16 09:49:00 2015-07-15 23:59:00 Outpatient Srinivasan Lacey [id number] 2015-05-27 16:43:00 2015-05-27 23:59:00 Outpatient Selvin Eloisa Khan [facility] [id number] Results Test Description Test Time Test Comments Results Result Comments Source HEPTOBILIARY W PHARM 2020-05-31 20:08:00 [place] [address] Patient Name: BRIAN BOWSER MR #: [id number] : 1965 Age/Sex: 55/M Req #: [id number] Adm Physician: LAURA BRAGG MD Ordered by: Nabeel Adair LITHOGRAPHIC PHOTOGRAPHER APPRENTICE Report #: [id number] Location: MED/SURG2 Room/Bed: [facility] Procedure: [id number] NM/HEPTOBILIARY W PHARM Exam Date: 05/31/20 Exam [...] FERCHO on 05/31/202009 COPY TO: NABEEL ADAIR LITHOGRAPHIC PHOTOGRAPHER APPRENTICE US ABDOMEN COMPLETE 2020-05-31 15:17:00 [place] [address] Patient Name: BRIAN BOWSER MR #: [id number] : 1965 Age/Sex: 55/M Req #: [id number] Adm Physician: LAURA BRAGG MD Ordered by: Nabeel Adair LITHOGRAPHIC PHOTOGRAPHER APPRENTICE Report #: [id number] Location: MED/SURG2 Room/Bed: [facility] Procedure: [id number] US/US ABDOMEN COMPLETE Exam Date: 05/31/20 Exam [...] on 05/31/20 1520 COPY TO: NABEEL ADAIR LITHOGRAPHIC PHOTOGRAPHER APPRENTICE CTA CHEST 2020-05-30 18:26:00 [place] [address] Patient Name: BRIAN BOWSER MR #: [id number] : 1965 Age/Sex: 55/M Req #: [id number] Adm Physician: LAURA BRAGG MD Ordered by: LAMONTE RODRIGUEZ DO Report #: [id number] Location: [facility] Room/Bed: [place] [address] Procedure: CT/CTA CHEST Exam Date: 05/30/20 Exam [...] RODRIGUEZ DO CHEST SINGLE (PORTABLE) 2020-05-30 17:16:00 [place] [address] Patient Name: BRIAN BOWSER MR #: [id number] : 1965 Age/Sex: 55/M Req #: [id number] Adm Physician: LAURA BRAGG MD Ordered by: LAMONTE RODRIGUEZ DO Report #: [id number] Location: MED/SURG2 Room/Bed: [facility] Procedure: [id number] DX/CHEST SINGLE (PORTABLE) Exam Date: 05/30/20 Exam [...] 5:23 PM Dictated By: SAMIR YOST MD [id number] Transcribed By: FERCHO on 05/30/20 1723 COPY TO: LAMONTE RODRIGUEZ DO CTA CHEST 2018-10-20 14:24:00 [place] [address] Patient Name: BRIAN BOWSER MR #: [id number] : 1965 Age/Sex: 53/M Req #: [id number] Adm Physician: Ordered by: LIZETTE GRIGGS MD Report #: [id number] Location: CT Room/Bed: Procedure: [id number] CT/CTA CHEST Exam Date: 10/20/18 Exam Time: [...] no intimal flap, mediastinal hematoma, or pseudoaneurysm. Pathologist measurements of the thoracic aorta are as [...] TO: LIZETTE GRIGGS MD CHEST 2 VIEWS [place] [address] Patient Name: BRIAN BOWSER MR #: [id number] : 1965 Age/Sex: 52/M Req #: [id number] Adm Physician: Ordered by: MASHA OLMOS DPM Report #: [id number] Location: OR Room/Bed: Procedure: [id number] DX/CHEST 2 VIEWS Exam Date: 07/09/17 Exam [...]
== END 2020-06-01 10:44 | disposition home or self-care (01) ==
LOC: ER 16:15 → ERHOLD 17:19 → MED/SURG2 20:20
PROVIDERS: ADMIT Internal Medicine; ATTEND Internal Medicine
DX: K85.90 Acute pancreatitis without necrosis or infection, unspecified (principal); R07.89 Other chest pain; K80.80 Other cholelithiasis without obstruction; G47.33 Obstructive sleep apnea (adult) (pediatric); E78.5 Hyperlipidemia, unspecified; Z11.59 Encounter for screening for other viral diseases
CPT/HCPCS: 36415 ×3; 71045; 71275; 76700; 78227; 80053 ×3; 80061; 82550 ×2; 82553 ×2; 83036; 83690 ×2; 83880; 84443; 84484 ×2; 85025 ×3; 85610; 85730; 93005; 93306; 99284; A9537; G0378 ×3; J1170 ×2; J2270; J2405; J3010; J7030 ×3; J7050; Q9967; U0002

== ENCOUNTER → 2020-06-09 | Day surgery (SDC) | payer OTHER ==
[~2020-06-09] MED LIST changes: +ASPIRIN CHEW81 MG PO; +BUPIVACAINE 0.25% 30ML SDV INJ ONE; +CEFOXITIN 1GM/0.9% NS 50ML 100 ML IV ONE; +DEXAMETHASONE SOD PHOS INJ 4 MG/ML VIAL ONE; +FAMOTIDINE20 MG PO; +FENTANYL CITRATE/PF 100MCG/2 ML INJ ONE; +GLYCOPYRROLATE INJ 0.2 MG/ML VIAL ONE; +HYDROMORPHONE 2MG/ML 2 MG/ML ML ONE; +KETOROLAC TROMETHAMINE 30 MG/ML VIAL ONE; +LIDOCAINE HCL 2% LOCAL INJ 5 ML SDV VIAL INJ ONE; +LIPITOR10 MG PO; +MEPERIDINE HCL INJ 25 MG/ML VIAL ONE; +MIDAZOLAM HCL 2 MG/2 ML VIAL ONE; +NEOSTIGMINE 1 MG/ML 10ML VIAL ONE; +ONDANSETRON HCL INJ 2MG/ML 2ML 2 MG/ML VIAL ONE; +PANTOPRAZOLE SO40 MG PO; +PROPOFOL IV EMULSION 10 MG/ML 20 ML VIAL ONE; +ROCURONIUM BROMIDE 10 MG/ML 5ML VIAL IV ONE; +SEVOFLURANE INHAL SOLN 250 ML PEN BTL ONE
[2020-06-09 15:49] VITALS: BP 123/79
--- NOTE | 2020-06-20 21:56 | Operative Report ---
DATE OF PROCEDURE: 06/09/2020 SURGEON: Jayro Gallardo MD PREOPERATIVE DIAGNOSIS: Gallstone pancreatitis. POSTOPERATIVE DIAGNOSIS: Gallstone pancreatitis. OPERATIVE PROCEDURE: Laparoscopic cholecystectomy. ANESTHESIA: General. INDICATION FOR SURGERY: A 55-year-old male with history of abdominal pain and pancreatitis. He was found to have gallstones. After pancreatitis has resolved, the patient consented for laparoscopic cholecystectomy. Attendant risks discussed. PROCEDURE FINDINGS: Chronic cholecystitis with gallstones. DESCRIPTION OF PROCEDURE: The patient was brought to OR intubated. Abdomen prepped and draped in sterile fashion. Infraumbilical incision was made. An 11 mm port inserted. Insufflation began under direct vision. Other port sites were placed in the midepigastric and right upper quadrant. Gallbladder chronically distended and inflamed. Fundus retracted in cephalad direction. Next, the gallbladder retracted laterally. With blunt and sharp dissection, we isolated the cystic artery, triply clipped and divided. The cystic duct was isolated and the junction of common bile duct was noted before triple clipping the cystic duct and divided between clips. The gallbladder was then detached from the liver using cautery and taken out through umbilical port site. Operative field was then irrigated. Hemostasis was achieved. All ports were removed under direct vision. Fascia was closed with 0 Vicryl and skin was closed with subcuticular stitch. The patient was extubated and transported to recovery room in guarded condition. Blood loss 10 mL. Jayro Gallardo MD DNL/MODL /[id number]
== END | disposition home or self-care (01) ==
LOC: OR 12:03
PROVIDERS: ATTEND Surgery
DX: K80.12 Calculus of gallbladder with acute and chronic cholecystitis without obstruction (principal); E78.5 Hyperlipidemia, unspecified; K21.9 Gastro-esophageal reflux disease without esophagitis; F17.210 Nicotine dependence, cigarettes, uncomplicated; Z01.812 Encounter for preprocedural laboratory examination; Z11.59 Encounter for screening for other viral diseases; Z79.82 Long term (current) use of aspirin
CPT/HCPCS: 47562; 88304; J1100; J1170; J1885; J2001; J2175; J2250; J2405; J2704; J2710; J3010; U0002

== ENCOUNTER → 2022-10-11 | Day surgery (SDC) | payer BC, OTHER ==
[~2022-10-11] MED LIST changes: +ACETAMINOPHEN 1000 MG/100 ML 100 ML IV ONE; -BUPIVACAINE 0.25% 30ML SDV INJ ONE; +BUPIVACAINE HCL 0.5% INJ 30 ML VIAL INJ ONE; +CEFAZOLIN SODIUM 2 GM ONE; -CEFOXITIN 1GM/0.9% NS 50ML 100 ML IV ONE; +DEXAMETHASONE SOD PHOS INJ 4 MG/ML SDV ONE; -DEXAMETHASONE SOD PHOS INJ 4 MG/ML VIAL ONE; -GLYCOPYRROLATE INJ 0.2 MG/ML VIAL ONE; +HYDROMORPHONE 1MG/1ML INJ ONE; -HYDROMORPHONE 2MG/ML 2 MG/ML ML ONE; -MEPERIDINE HCL INJ 25 MG/ML VIAL ONE; -NEOSTIGMINE 1 MG/ML 10ML VIAL ONE; +OLMESARTAN-HCT1 EAC2 PO; +POVIDONE IODINE 0.05% 0.05 % ML PO ONE; -ROCURONIUM BROMIDE 10 MG/ML 5ML VIAL IV ONE; +TESTOSTERO100 MG/1 M
[2022-10-11 10:19] LABS: BASOPHILS % 0.3 % (0.0-1.0); EOSINOPHILS # (AUTO) 0.1 (0.0-0.4); EOSINOPHILS % 1.7 % (0.0-6.0); HEMATOCRIT 51.7 % (38.2-49.6); HEMOGLOBIN 16.6 g/dL (14.0-18.0); LYMPHOCYTES # (AUTO) 2.9 (1.0-3.2); LYMPHOCYTES % 41.9 % (18.0-39.1); MEAN CORPUSCULAR HEMOGLOBIN 29.3 pg (28-32); MEAN CORPUSCULAR HGB CONC 32.1 g/dL (31-35); MEAN CORPUSCULAR VOLUME 91.3 fL (81-99); MONOCYTES # (AUTO) 0.6 (0.2-0.8); MONOCYTES % 8.3 % (4.4-11.3); NEUTROPHILS # (AUTO) 3.3 (2.1-6.9); NEUTROPHILS % 47.7 % (38.7-80.0); PLATELET COUNT 218 x10e3/uL (140-360); RED BLOOD COUNT 5.66 x10e6/uL (4.3-5.7); RED CELL DISTRIBUTION WIDTH 12.4 % (11.7-14.4)
[2022-10-11 14:30] VITALS: BP 115/75
== END | disposition home or self-care (01) ==
LOC: OR 09:41
PROVIDERS: ATTEND Podiatrist Foot & Ankle Surgery
DX: L72.8 Other follicular cysts of the skin and subcutaneous tissue (principal); G58.8 Other specified mononeuropathies; G47.33 Obstructive sleep apnea (adult) (pediatric); I10 Essential (primary) hypertension; I20.9 Angina pectoris, unspecified; Z79.899 Other long term (current) drug therapy
CPT/HCPCS: 28039 ×2; 36415; 64704; 71046; 85025; 88304; 93005; J0131; J1100; J1170; J1885; J2001; J2250; J2405; J2704; J3010; Q4152

== ENCOUNTER → 2023-09-05 | Day surgery (SDC) | payer BC ==
[~2023-09-05] MED LIST changes: +AMOXICILLIN250 MG PO; -CEFAZOLIN SODIUM 2 GM ONE; +DEXAMETHASONE SOD PHOS 10 MG/1 ML VIAL ONE; +HYDROCODON-ACE1 EA11 PO; -HYDROMORPHONE 1MG/1ML INJ ONE; +IBUPROFEN800 MG PO; -MIDAZOLAM HCL 2 MG/2 ML VIAL ONE; +NEOSTIGMINE 1 MG/ML 10ML VIAL ONE; -POVIDONE IODINE 0.05% 0.05 % ML PO ONE; +ROPIVACAINE 0.5% 5 MG/ML 30 ML SDV ONE
[2023-09-05] MEDS: CEFAZOLIN SODIUM 2 GM ONE (11:31)
[2023-09-05] MEDS: LACTATED RINGER'S 1,000 ML ONE (11:31)
[2023-09-05] MEDS: FENTANYL CITRATE/PF 100MCG/2 ML INJ ONE (14:05)
[2023-09-05] MEDS: HYDROCODONE/APAP 7.5MG-325MG 1 EA TAB ONE (14:30)
[2023-09-05 15:17] VITALS: BP 128/76; PULSE 81; RESP 18; O2SAT 97
== END | disposition home or self-care (01) ==
LOC: OR 09:45
PROVIDERS: ATTEND Podiatrist Foot & Ankle Surgery
DX: G57.82 Other specified mononeuropathies of left lower limb (principal); G57.62 Lesion of plantar nerve, left lower limb; G47.33 Obstructive sleep apnea (adult) (pediatric); I10 Essential (primary) hypertension; I25.10 Atherosclerotic heart disease of native coronary artery without angina pectoris; Z01.810 Encounter for preprocedural cardiovascular examination; Z79.1 Long term (current) use of non-steroidal anti-inflammatories (NSAID); Z79.899 Other long term (current) drug therapy
CPT/HCPCS: 11421; 11422 ×2; 28080; 88304; 93005; J0131; J1100 ×2; J1885; J2001; J2405; J2704; J2795; J3010; J7121; J2710

== ENCOUNTER → 2024-06-01 | Day surgery (SDC) | payer BC ==
[~2024-06-01] MED LIST changes: -ACETAMINOPHEN 1000 MG/100 ML 100 ML IV ONE; +CEFAZOLIN SODIUM 2 GM ONE; -DEXAMETHASONE SOD PHOS 10 MG/1 ML VIAL ONE; +EPHEDRINE SULFATE INJ 50 MG/ML VIAL ONE; +LACTATED RINGER'S 1,000 ML ONE; +LUNESTA3 MG PO; +METOCLOPRAMIDE HCL 10 MG/2ML VIAL ONE; +MULTI-VITAMIN1 EACH PO; -NEOSTIGMINE 1 MG/ML 10ML VIAL ONE; +NEXIUM40 MG PO; -ROPIVACAINE 0.5% 5 MG/ML 30 ML SDV ONE; +SUCCINYLCHOLINE CHLORIDE 20 MG/ML 10ML VIAL ONE; -TESTOSTERO100 MG/1 M; +TESTOSTERO100 MG/1 M INJ
[2024-06-01] MEDS: HYDROMORPHONE 1MG/1ML INJ ONE (14:27)
[2024-06-01] MEDS: HYDROCODONE/APAP 10MG-325MG TAB ONE (14:49)
[2024-06-01 15:05] VITALS: BP 131/76; PULSE 77; RESP 18; O2SAT 97
== END | disposition home or self-care (01) ==
LOC: OR 11:23
PROVIDERS: ATTEND Podiatrist Foot & Ankle Surgery
DX: M67.472 Ganglion, left ankle and foot (principal); M20.42 Other hammer toe(s) (acquired), left foot; G47.33 Obstructive sleep apnea (adult) (pediatric); I10 Essential (primary) hypertension; K21.9 Gastro-esophageal reflux disease without esophagitis; F17.200 Nicotine dependence, unspecified, uncomplicated; Z01.810 Encounter for preprocedural cardiovascular examination; Z79.899 Other long term (current) drug therapy
CPT/HCPCS: 28092; 28285 ×3; 88304; 93005; C1713 ×2; J0330; J1100; J1170; J1885; J2001; J2405; J2704; J2765; J3010; J7121; Q4150

== ENCOUNTER 2024-11-15 21:36 | Emergency (ER) | payer BC ==
[~2024-11-15] VITALS: Ht 180.3 cm; Wt 99.4 kg
[~2024-11-15 21:36] MED LIST changes: -BUPIVACAINE HCL 0.5% INJ 30 ML VIAL INJ ONE; -CEFAZOLIN SODIUM 2 GM ONE; -DEXAMETHASONE SOD PHOS INJ 4 MG/ML SDV ONE; -EPHEDRINE SULFATE INJ 50 MG/ML VIAL ONE; -FENTANYL CITRATE/PF 100MCG/2 ML INJ ONE; -KETOROLAC TROMETHAMINE 30 MG/ML VIAL ONE; -LACTATED RINGER'S 1,000 ML ONE; -LIDOCAINE HCL 2% LOCAL INJ 5 ML SDV VIAL INJ ONE; -METOCLOPRAMIDE HCL 10 MG/2ML VIAL ONE; -ONDANSETRON HCL INJ 2MG/ML 2ML 2 MG/ML VIAL ONE; -PROPOFOL IV EMULSION 10 MG/ML 20 ML VIAL ONE; -SEVOFLURANE INHAL SOLN 250 ML PEN BTL ONE; -SUCCINYLCHOLINE CHLORIDE 20 MG/ML 10ML VIAL ONE
[2024-11-15 22:50] LABS: BASOPHILS % 0.3 % (0.0-1.0); EOSINOPHILS # (AUTO) 0.1 (0.0-0.4); EOSINOPHILS % 0.4 % (0.0-6.0); HEMATOCRIT 44.5 % (38.2-49.6); HEMOGLOBIN 15.5 g/dL (14.0-18.0); LYMPHOCYTES # (AUTO) 2.8 (1.0-3.2); LYMPHOCYTES % 20.1 % (18.0-39.1); MEAN CORPUSCULAR HGB CONC 34.8 g/dL (31-35); MONOCYTES # (AUTO) 0.9 (0.2-0.8); MONOCYTES % 6.2 % (4.4-11.3); NEUTROPHILS # (AUTO) 10.1 (2.1-6.9); NEUTROPHILS % 72.7 % (38.7-80.0); PLATELET COUNT 223 x10e3/uL (140-360); WHITE BLOOD COUNT 13.92 x10e3/uL (4.8-10.8)
[2024-11-15] MEDS: KETOROLAC TROMETHAMINE 30 MG/ML VIAL IV STA (23:03)
[2024-11-15] MEDS: METOCLOPRAMIDE HCL 10 MG/2ML VIAL IV ONE (23:03)
[2024-11-15] MEDS: SODIUM CHLORIDE 0.9% 1000ML 1,000 ML IV SCH (23:04)
[2024-11-15] MEDS: DIPHENHYDRAMINE HCL 25 MG CAP PO ONE (23:04)
[2024-11-15 23:11] LABS: ALANINE AMINOTRANSFERASE 244 IU/L (0-55); ALBUMIN 3.9 g/dL (3.5-5.0); ALBUMIN/GLOBULIN RATIO 1.1 (0.8-2.0); ALKALINE PHOSPHATASE 96 IU/L (40-150); ANION GAP 17.6 mmol/L (8-16); BILIRUBIN,TOTAL 0.4 mg/dL (0.2-1.2); BLOOD UREA NITROGEN 17 mg/dL (7-26); BUN/CREATININE RATIO 13 (6-25); CALCIUM 10.1 mg/dL (8.4-10.2); CARBON DIOXIDE 25 mmol/L (22-29); CHLORIDE 104 mmol/L (98-107); CREATININE, SERUM 1.26 mg/dL (0.72-1.25); EST GLOMERULAR FILTRATION RATE 66 ML/MIN (>=60); GLUCOSE 109 mg/dL (74-118); POTASSIUM 3.6 mmol/L (3.5-5.1); SODIUM 143 mmol/L (136-145); TOTAL PROTEIN 7.5 g/dL (6.5-8.1)
[2024-11-15 23:19] LABS: TROPONIN I < 0.001 ng/mL (0-0.300)
[2024-11-15] MEDS: DEXAMETHASONE SOD PHOS 10 MG/1 ML VIAL IV ONE (23:24)
[2024-11-15 23:26] VITALS: PULSE 90; RESP 22; O2SAT 98
[2024-11-15] MEDS: ALBUTEROL/IPRATROPIUM 3 ML NEB NEB ONE (23:26)
[2024-11-15 23:49] VITALS: PULSE 89; RESP 22
[2024-11-15] MEDS ORDERED: GUAIFENESIN-DM1 EAC1 PO (23:53)
[2024-11-15] MEDS ORDERED: DOXYCYCLINE HY100 MG PO (23:53)
[2024-11-15] MEDS ORDERED: DEXAMETHASONE4 MG PO (23:57)
[2024-11-15] MEDS ORDERED: VENTOLIN HFA18 GM INH (23:57)
[2024-11-16 00:02] LABS: CORONAVIRUS COVID-19 AG NEGATIVE (NEGATIVE); INFLUENZA A AG NEGATIVE (NEGATIVE); INFLUENZA B AG NEGATIVE (NEGATIVE)
[2024-11-16 00:24] VITALS: PULSE 88; RESP 16; TEMP 98.8; O2SAT 97
== END 2024-11-16 00:11 | disposition home or self-care (01) ==
LOC: ER 21:45
DX: R06.02 Shortness of breath (principal); J44.9 Chronic obstructive pulmonary disease, unspecified; R50.9 Fever, unspecified; R05.9 Cough, unspecified; R51.9 Headache, unspecified; I10 Essential (primary) hypertension; M19.09 Primary osteoarthritis, other specified site; G47.30 Sleep apnea, unspecified; K21.9 Gastro-esophageal reflux disease without esophagitis; M54.9 Dorsalgia, unspecified; G89.29 Other chronic pain; Z11.52 Encounter for screening for COVID-19
CPT/HCPCS: 36415; 71045; 80053; 83880; 84484; 85025; 87428; 93005; 94640; 94799; 99284; J1100; J1885; J2765; J7030